=== PATIENT | female | born 1980 | race Caucasian/White ===

== ENCOUNTER 2021-05-27 15:16 | Emergency (ER) | payer OTHER ==
[~2021-05-27] VITALS: Ht 149.9 cm; Wt 59.0 kg
[2021-05-27 15:23] VITALS: BP 134/79
[2021-05-27] MEDS ORDERED: FAMOTIDINE40 MG PO (15:27)
[2021-05-27] MEDS ORDERED: ESCITALOPRAM OX20 MG PO (15:28)
[2021-05-27] MEDS ORDERED: ALPRAZOLAM1 MG PO (15:28)
[2021-05-27] MEDS ORDERED: XANAX 0.5 MG0.5 MG PO (15:42)
[2021-05-27] MEDS ORDERED: VISTARIL 25 MG25 M1 PO (15:42)
== END 2021-05-27 16:09 | disposition home or self-care (01) ==
LOC: ER 15:16
DX: F41.9 Anxiety disorder, unspecified (principal); Z76.0 Encounter for issue of repeat prescription; Z79.899 Other long term (current) drug therapy